=== PATIENT | female | born 1990 | race Two or more races ===

== ENCOUNTER 2023-12-25 18:16 | Emergency (ER) | payer OTHER ==
[~2023-12-25] VITALS: Ht 172.7 cm; Wt 81.6 kg
[2023-12-25] MEDS ORDERED: 0.9 % SODIUM CHLORIDE 1,000 ML IV STA (18:23)
[2023-12-25 18:50] LABS: HEMATOCRIT 27.4 % (36.0-45.00); MEAN CELL VOLUME 86.8 fL (80.00-100.00); MEAN CORPUSCULAR HEMOGLOBIN 28.5 pg (27.00-32.0); MEAN CORPUSCULAR HGB CONC 32.8 g/dl (32.0-36.0); PLATELET COUNT 201 K/uL (150-450); RED BLOOD COUNT 3.16 M/uL (4.00-6.00)
[2023-12-25 19:17] LABS: CALCIUM 7.7 mg/dL (8.5-10.1); CREATININE SERUM 0.56 mg/dL (0.55-1.02); GFR 123.19; POTASSIUM 3.32 mEq/L (3.5-5.1)
== END 2023-12-25 19:55 | disposition home or self-care (01) ==
LOC: ER 18:16
PROVIDERS: Emergency Medicine
DX: R55 Syncope and collapse (principal); F10.10 Alcohol abuse, uncomplicated